=== PATIENT | male | born 1970 | race Caucasian/White ===

== ENCOUNTER → 2019-07-05 | Outpatient (REF) | payer OTHER | LOC: M LAB REF 12:32 | PROVIDERS: ATTEND Physician Assistant Medical | DX: J02.9 Acute pharyngitis, unspecified (principal) ==

== ENCOUNTER → 2021-04-30 | Outpatient (CLI) | payer OTHER ==
--- NOTE | 2021-04-30 12:53 | REP ---
INDICATION: SUSPECT HIP OA. COMPARISON: None. TECHNIQUE: Two views right hip. FINDINGS: There is severe joint space narrowing at the weight-bearing aspect of the hip joint. There is moderate diffuse marginal spurring. There is moderate degree of subchondral sclerosis. There is no fracture or dislocation. IMPRESSION: Moderately severe degenerative changes right hip joint. <Electronically signed by Eliecer Rubin > 04/30/21 [id number]
== END ==
LOC: M PLAIMG 11:18
PROVIDERS: ATTEND Internal Medicine
DX: M17.10 Unilateral primary osteoarthritis, unspecified knee (principal)

== ENCOUNTER → 2021-11-05 | Outpatient (CLI) | payer OTHER ==
[~2021-11-05] MED LIST: VITMTA PO
== END ==
LOC: M LABSMTC 09:22
PROVIDERS: ATTEND Anesthesiology
DX: Z01.812 Encounter for preprocedural laboratory examination (principal); Z20.822 Contact with and (suspected) exposure to COVID-19

== ENCOUNTER 2021-11-10 11:21 | Day surgery (SDC) | payer OTHER ==
[~2021-11-10] VITALS: Ht 175.3 cm; Wt 86.2 kg
[~2021-11-10 11:21] MED LIST changes: +NS 1,000 ML IV ONE
[2021-11-10] MEDS ORDERED: LIDOCAINE 2% 100MG/5ML SDV (FOR ANES.) As Ordered ONE (12:31)
[2021-11-10] MEDS ORDERED: propofoL 200 MG/20 ML VIAL As Ordered ONE ×2 (12:31→12:57)
[2021-11-10 13:20] VITALS: BP 137/96
== END 2021-11-10 13:35 | disposition home or self-care (01) ==
LOC: M OPP 11:21
PROVIDERS: ATTEND Internal Medicine Gastroenterology
DX: Z12.11 Encounter for screening for malignant neoplasm of colon (principal); K64.0 First degree hemorrhoids; F17.210 Nicotine dependence, cigarettes, uncomplicated

== ENCOUNTER → 2023-07-26 | Outpatient (CLI) | payer OTHER ==
[~2023-07-26] MED LIST changes: -NS 1,000 ML IV ONE
== END ==
LOC: M RAD 15:53
PROVIDERS: ATTEND Family Medicine
DX: L72.11 Pilar cyst (principal)

== ENCOUNTER → 2024-07-29 | Outpatient (REF) | payer OTHER | LOC: M LAB REF 15:35 | PROVIDERS: ATTEND Surgery | DX: L72.11 Pilar cyst (principal) ==